=== PATIENT | female | born 1985 | race Hispanic/Latino ===

== ENCOUNTER 2019-10-25 10:07 | Emergency (ER) | payer SELFPAY ==
[~2019-10-25] VITALS: Ht 162.6 cm; Wt 119.3 kg
[~2019-10-25 10:07] MED LIST: AZITHROMYCIN250 MG PO; NORCO 7.5-3251 EACH PO
[2019-10-25] MEDS ORDERED: PREDNISONE 20 MG TAB PO NR (11:30)
[2019-10-25] MEDS ORDERED: CEFTRIAXONE SOD 1 GM VIAL IM NR (11:30)
[2019-10-25] MEDS ORDERED: KETOROLAC TROMETHAMINE 60 MG/2 ML VIAL IM NR (11:30)
[2019-10-25] MEDS ORDERED: LIDOCAINE HCL 1% 2 ML AMP ONE (12:01)
[2019-10-25] MEDS ORDERED: CEFDINIR300 MG PO (12:35)
[2019-10-25] MEDS ORDERED: AZITHROMYCIN500 MG PO (12:35)
[2019-10-25] MEDS ORDERED: PREDNISONE20 MG PO (12:35)
== END 2019-10-25 12:51 | disposition home or self-care (01) ==
LOC: ER 10:07
DX: H66.001 Acute suppurative otitis media without spontaneous rupture of ear drum, right ear (principal); J02.9 Acute pharyngitis, unspecified
CPT/HCPCS: 99282; J0696; J1885; J2001; J7512